=== PATIENT | female | born 2000 | race Caucasian/White ===

== ENCOUNTER → 2021-08-14 12:02 | Outpatient (CLI) | payer OTHER, SELFPAY ==
--- NOTE | 2021-08-14 | DI.US.S_ITS ---
PROCEDURE: US OB >= 14 WEEKS FETUS INDICATIONS: 20 WEEK ANATOMY SCAN. OUTSIDE/PRIOR DATING DATA: Last menstrual period (LMP): March 05, 2021 . LMP-based estimated date of delivery (RAFFY): December 10, 2021 . First dating scan (date and location): [facility]; August 14, 2021 . Estimated date of delivery (RAFFY) from first dating scan: November 29, 2021 . TECHNIQUE: Real-time scanning was performed of the fetus, with image documentation and biometric measurements. COMPARISON: None. FINDINGS: General: A single living intrauterine gestation is present. Presentation: Breech/oblique. Placenta: Placental position is posterior , without previa. Amniotic fluid index: 15 cm, normal range is 5-24 cm. heart rate: 155 beats per minute. Maternal cervical canal: 4.6 cm long. Normal lower limit is 2.5 cm. biometrics: Biparietal diameter: 5.6 cm Head circumference: 20.8 cm Abdominal circumference: 19 cm Femur length: 4.1 cm Estimated gestational age from initial scan: not applicable. Composite gestational age from present scan: 23 weeks, 2 days Estimated weight and percentile: 597 g +/-88 g; 58th percentile Measurement variability for biometric dating: +/- 7 days from 14 weeks to 15 weeks 6 days gestation, +/- 10 days from 16 weeks to 21 weeks 6 days gestation, +/- 2 weeks from 22 weeks to 27 weeks 6 days gestation, +/- 3 weeks for 28 weeks gestation or later. weight reference: 4500 g or EFW >90/95% is considered macrosomia or large for gestational age. EFW <10% is small for gestational age. EFW 5% or less is considered intra-uterine growth restriction. Anatomic survey: Neuro: Ventricles are non-dilated at less than 10 mm. Cisterna magna is normal at 3-11 mm. Cerebellum is normal in size and morphology. Nuchal skin fold: Normal at less than 6 mm between 14-21 weeks gestational age. Face: Nose and lips, facial profile are normal. Spine: No evidence for spina bifida. Heart: 4-chambered heart is present. Suboptimal visualization of ventricular outflow tracts. Diaphragm: Diaphragm is intact. Stomach: Left-sided stomach is present. Kidneys: No hydronephrosis. Normal is less than 5 mm in 2nd trimester, less than 7 mm in 3rd trimester. Cord: 3-vessel cord has orthotopic insertion. Bladder: Normal in size. Extremities: All 4 extremities identified. IMPRESSION: Single live intrauterine gestation as detailed above. Dictated by: Germán Murray M.D. on 08/14/2021 at 15:12 Approved by: Germán Murray M.D. on 08/14/2021 at 15:16
== END ==
PROVIDERS: Referring Provider Nurse Practitioner Obstetrics & Gynecology; Visit Provider Nurse Practitioner Obstetrics & Gynecology
DX: Z34.92 Encounter for supervision of normal pregnancy, unspecified, second trimester (principal); Z3A.23 23 weeks gestation of pregnancy
CPT/HCPCS: 76811

== ENCOUNTER → 2021-11-20 16:21 | Outpatient (ROUT) | payer OTHER, SELFPAY | PROVIDERS: Visit Provider Nurse Practitioner Obstetrics & Gynecology | DX: Z34.90 Encounter for supervision of normal pregnancy, unspecified, unspecified trimester (principal); Z36.85 Encounter for antenatal screening for Streptococcus B; Z3A.36 36 weeks gestation of pregnancy | CPT/HCPCS: 87081 ==

== ENCOUNTER 2021-12-05 07:55 | Inpatient (IN) | payer OTHER, SELFPAY ==
--- NOTE | 2021-12-05 08:24 | PM.OBHP.1 ---
OB HPI Date/Time Date of admission: 12/05/21 Date Patient Seen: 12/05/21 Time Patient Seen: 08:00 History of Present Condition Chief complaint: NST : 1 Para: 0 Estimated Date of Delivery: 12/10/21 Estimated Gestational Age (weeks): 39.2 Narrative: JUDY BOATENG is a 21 year old female @ 30fsb3osag by LMP and 8wk US who presents for evaluation of labor. Contractions started around 0545 and leaking fluid noted shortly after. +FM. No vaginal bleeding. Uncomplicated PN care w/ CNM, transferred in from [place] care @ 21wks. Desires epidural. History of Present care: good care Dating criteria: LMP confirmed by 1st trimester US Ultrasounds: normal mid trimester US Obstetrical complications: none Medical complications: none Preadmission Labs Blood type: A (+) positive -: Antibody screen: negative, GBS status: negative, HBsAG: negative, HIV: negative and RPR/VDLR: negative -: Chlamydia screen: not detected and Gonorrhea screen: not detected -: Rubella: not immune and Varicella: immune HCT: 34.6 HCAB: negative PAP: Normal 1 hr GTT: 88 Evaluation Evaluation Baseline heart rate: 155 Variability: Moderate (11-25) monitor accelerations: Present Monitor Decelerations: Absent Contraction Frequency (minutes): 3 Uterine Contraction Intensity: Strong/Firm Category of Tracing: Reactive Status: Category l Dilation (cm): 4 Effacement (%): 100 Dilation: 3-4 cm Effacement: >/=80% station: -2 Position of cervix: mid Consistency: soft Lopez score: 9 [facility] Surgical History (Updated 12/05/21 @ 08:58 by Domitila Chris CNM) H/O oral surgery Social History (Updated 12/05/21 @ 09:06 by Domitila Chris CNM) marital status: unmarried,living together household members: significant other lives independently: Yes caregiver/support person: No occupational status: employed Smoking Status: Never smoker Meds Home Medications and Allergies Home Medications Medication Instructions Recorded Confirmed Type vits no.130-ferrous fum 1 tab PO DAILY 12/05/21 12/05/21 History 27 mg iron-folic acid 800 mcg tablet ( Vitamin) Allergies Allergy/AdvReac Type Severity Reaction Status Date / Time No Known Drug Allergies Allergy Verified 12/05/21 08:42 Review of Systems Review of Systems ROS: Yes All systems reviewed with the patient and are negative except as otherwise documented OB Exam Resp Effort & Inspection: normal respiratory effort Auscultation: clear to auscultation bilaterally Cardio Rate: regular rate Rhythm: regular rhythm Heart Sounds: S1 normal and S2 normal Presentation: vertex Objective Labs Result Diagrams: 12/05/21 08:30 Labs: Amnisure- Negative Assessment and Plan Assessment and Plan Assessment and Plan narrative: A: Term nullipara Active labor Rubella NONimmune No indication for GBS prophylaxis Cat I FHR P: Admit, routine orders w/ epidural KAVITHA. Labor support, PRN. Reassess in 4 hours or sooner, PRN. Recommend MMR PP.
[2021-12-05] MEDS: LACTATED RINGERS 1,000 ML 100 ML IV (08:36)
[2021-12-05 09:00] VITALS: BP 131/67
[2021-12-05 09:01] LABS: Add Manual Diff / Slide Review NO; Basophils Absolute Auto 0 /uL (0-100); Basophils Percent Auto 0.2 % (0-2); COVID19 -Nasal RAPID Negative (Negative); Eosinophils Absolute Auto 0 /uL (0-450); Eosinophils Percent Auto 0.1 % (2-4); Hematocrit 39.1 % (36-46); Hemoglobin 13.5 g/dL (12.0-16.0); Lymphocytes Absolute Auto 1500 /uL (1100-4500); Lymphocytes Percent Auto 11.9 % (25-40); Mean Corpuscular HGB Conc 34.5 % (30-36); Mean Corpuscular Hemoglobin 30.3 PG (26-34); Monocytes Absolute Auto 800 /uL (0-900); Monocytes Percent Auto 6.8 % (3-14); Neutrophils Absolute Auto 10000 /uL (1500-7000); Platelet Count 121 X10^3/uL (150-400); Red Blood Cell Count 4.44 X10^6/uL (4.0-5.2); Red Cell Distribution Width 13.5 % (11.6-14.8); White Blood Cell Count 12.3 X10^3/uL (4.5-11.0)
[2021-12-05] MEDS: fentaNYL 100 MCG/2 ML INJ IV (09:13)
[2021-12-05] MEDS: FENT 2MCG/ML BUPIV 0.125% EPI 200 MCG/100 ML PLAST..BAG 10 MCG EPIDURAL (10:05)
[2021-12-05] MEDS: OXYTOCIN PREMIX 30 UNIT/500 ML PLAST..BAG 200 UNIT IV (14:05)
--- NOTE | 2021-12-05 14:52 | PM.OBPRVD ---
Labor & Delivery Delivery date: 12/05/21 Intrapartal Events: None Cervical ripening method: none Induction method: none Delivery monitor: external FHT and external uterine Route of delivery: Episiotomy description: None L&D Laceration Description: None Estimated blood loss (mL): 150 Anesthesia Type: Epidural Narrative: Grecia was examined at 2pm and found to be C/C/+2. Likely ROM during second stage, no fluid noted. Strong maternal pushing with coaching led to NSVB of a vigorous baby girl in ABHI position over an intact perineum. [place] was lifted to maternal abdomen by patient and her sister. Clear fluid noted after abdomen. IV pitocin for AMTSL started. After cessation of pulsation, the cord was double clamped by CNM and cut by FOB. Apgars 9/9. Cord blood hold sample was collected. Gentle cord traction and single maternal push led to spontaneous, Schultze delivery of an apparently intact placenta, membranes and 3VC. Fundus immediately firm and bleeding minimal. Both mother and baby stable and skin to skin as I left the room. QBL 150mL. Baby 1: Infant gender: Female Presentation: vertex Position: Left Occiput Anterior Placenta delivery description: Spontaneous Cord Vessel Description: 3 Vessels score (1 min): 9 score (5 min): 9 weight: 3.415 kg Plan for aftercare: Routine care
[2021-12-05] MEDS: KETOROLAC 30 MG/ML VIAL IV (16:18)
[2021-12-06] MEDS: ACETAMINOPHEN 325 MG TABLET 650 MG PO (02:59)
[2021-12-06] MEDS: IBUPROFEN 600 MG TABLET PO (02:59)
[2021-12-06] MEDS: LANOLIN OINT 7 GM 1 APPLIC TOP (03:00)
--- NOTE | 2021-12-06 08:23 | P.DS_ITS ---
Discharge Providers Provider Date of admission: 12/05/21 07:55 Discharge Date: 12/06/21 Primary care physician: CAROLIN Consults: 12/05/21 08:23 Consult to Anesthesiology Urgent Comment: Consulting Provider: Nik Bran Reason for consultation: epidural requested Has provider been notified: No 12/06/21 14:49 Consult to Foreign Languages Department Chair Routine Comment: Discharge provider: Domitila Chris CNM Summary Hospital Course Date Patient Seen: 12/06/21 Time Patient Seen: 08:23 Diagnoses: o80.0 Hospital Course: Grecia is PPD1 s/p NSVB. Voiding, ambulating and independently. Minimal pain is well controlled w/ PO medication. Lochia is light, without clots. Tolerating a general diet. Feeling ready for discharge to home. Peripartum Data Infant Delivery Method: Natural Vaginal Laceration Description: None Episiotomy description: None complications: none 1: Gender: Female Disposition of : home Discharge Diagnosis (1) Encounter for full-term uncomplicated delivery: Start Date: 12/05/21 Start Time: 14:36 Status: Acute Status at Discharge Cognitive/behavioral status at discharge: at baseline, oriented Functional status at discharge: independent ambulation Overall status at discharge: patient is progressing back to baseline Time Spent with Patient Time attestation: Total time spent providing and/or coordinating discharge services: Time spent: Less than 30 minutes Objective Labs Result Diagrams: 12/05/21 08:30 Labs: Laboratory Results - last 24 hr 12/05/21 12/05/21 12/05/21 08:30 08:30 08:30 WBC 12.3 H RBC 4.44 Hgb 13.5 Hct 39.1 MCV 88.0 MCH 30.3 MCHC 34.5 RDW 13.5 Plt Count 121 L Neut % (Auto) 81.0 H Lymph % (Auto) 11.9 L [place] % (Auto) 6.8 Eos % (Auto) 0.1 L Baso % (Auto) 0.2 Neut # (Auto) 91238 H Lymph # (Auto) 1500 [place] # (Auto) 800 Eos # (Auto) 0 Baso # (Auto) 0 SARS-CoV-2 (PCR) Negative Blood Type A Positive Antibody Screen Negative Exam Vital Signs (past 8 hours): BP 117/76mmHg, HR 84bpm, RR 16/min, T 98.2F Temporal Other: Fundis form @ u-1, lochia scant, no clots. Perineum intact. Discharge Plan Discharge Plan Patient Disposition: Home Discharge orders & Medications Prescriptions: Continued Vitamin 27 mg iron- 800 mcg tablet 1 tab PO DAILY 0RF Label Comments: Take 1 tablet By Mouth once a day Follow up/Referrals: Domitila Chris CNM [[employer]] - (Follow-up 12/20 @ 0900 by Telehealth Follow-up 01/15 @ 0945 in office) Diet/Activity/Treatments Diet: Diet as Tolerated and Regular Activity: pelvic rest x 6 weeks Skin/Wound/Dressing Care Report to your healthcare provider any signs of infection, such as:: chills, fever, increased pain, unusual drainage and unusual redness Visit Report/Discharge Packet Instructions: Depression
[2021-12-06] MEDS: MEASLES,MUMPS,RUBELLA VACC/PF 0.5 ML VIAL SUBCUT (13:20)
[2021-12-06 13:40] VITALS: BP 118/72; PULSE 77; RESP 16; TEMP 36.8
== END 2021-12-06 13:30 | disposition home or self-care (01) | DRG 807 ==
PROVIDERS: Admitting Provider Nurse Practitioner Obstetrics & Gynecology; Referring Provider Nurse Practitioner Obstetrics & Gynecology; Visit Provider Nurse Practitioner Obstetrics & Gynecology
DX: O80 Encounter for full-term uncomplicated delivery (principal); Z37.0 Single live birth; Z3A.39 39 weeks gestation of pregnancy; Z20.822 Contact with and (suspected) exposure to COVID-19
CPT/HCPCS: 01967; 36415; 59050; 84112; 85025; 86850; 86900; 86901; 87635; C9803; G0379; J1885; J2590; J3010